=== PATIENT | female | born 1975 | race Caucasian/White ===

== ENCOUNTER 2020-08-16 09:12 | Emergency (ER) | payer OTHER ==
[2020-08-16] MEDS ORDERED: Prochlorperazine Maleate 5 MG TAB ONE (09:56)
[2020-08-16] MEDS ORDERED: Ketorolac Tromethamine 30 MG/ML VIAL ONE (09:57)
[2020-08-16] MEDS ORDERED: diphenhydrAMINE 50 MG/ML VIAL ONE (09:57)
== END 2020-08-16 11:23 | disposition home or self-care (01) ==
LOC: CSHERS 09:12
DX: G43.919 Migraine, unspecified, intractable, without status migrainosus (principal); G25.81 Restless legs syndrome; K21.9 Gastro-esophageal reflux disease without esophagitis; Z79.899 Other long term (current) drug therapy
CPT/HCPCS: 96374; 96375; J1200; J1885; Q0164

== ENCOUNTER 2022-04-24 09:14 | Outpatient (CLI) | payer OTHER | END 2022-04-24 09:15 | disposition home or self-care (01) | LOC: CSHCT 09:14 | PROVIDERS: ATTEND Neurological Surgery | DX: M43.16 Spondylolisthesis, lumbar region (principal); M43.17 Spondylolisthesis, lumbosacral region; M51.36 Other intervertebral disc degeneration, lumbar region; M48.061 Spinal stenosis, lumbar region without neurogenic claudication | CPT/HCPCS: 72131 ==

== ENCOUNTER 2023-02-06 14:03 | Outpatient (CLI) | payer OTHER | END 2023-02-06 14:04 | disposition home or self-care (01) | LOC: CSHMRI 14:03 | PROVIDERS: ATTEND Anesthesiology Pain Medicine | DX: M54.16 Radiculopathy, lumbar region (principal); M43.16 Spondylolisthesis, lumbar region; Z98.890 Other specified postprocedural states | CPT/HCPCS: 72120; 72148 ==